=== PATIENT | female | born 1985 | race Caucasian/White ===

== ENCOUNTER 2017-09-28 19:31 | Emergency (ER) | payer OTHER ==
[2017-09-28 23:11] LABS: ADD MAN DIFF? NO
[2017-09-28 23:15] LABS: WHITE BLOOD COUNT 8.4 10^3/ul (4.8-10.8)
[2017-09-28 23:15] LABS: BASOPHIL # 0.1 10^3/ul (0.0-0.1); BASOPHILS % 0.6 % (0.0-2.0); EOSINOPHILS # 0.2 10^3/ul (0.0-0.5); EOSINOPHILS % 2.2 % (0.0-7.0); HEMATOCRIT 37.9 % (37.0-47.0); HEMOGLOBIN 13.8 g/dl (12.0-16.0); LYMPHOCYTES # 2.5 10^3/ul (0.8-2.9); LYMPHOCYTES % 29.5 % (15.0-51.0); MEAN CORPUSCULAR HEMOGLOBIN 31.4 pg (29.0-33.0); MEAN CORPUSCULAR HGB CONC 36.4 g/dl (32.0-37.0); MEAN CORPUSCULAR VOLUME 86.1 fl (82.0-101.0); MEAN PLATELET VOLUME 9.5 fl (7.4-10.4); MONOCYTE # 0.8 10^3/ul (0.3-0.9); NEUTROPHIL # 4.9 10^3/ul (1.6-7.5); NEUTROPHILS % 58.5 % (39.0-77.0); PLATELET COUNT 270 10^3/UL (140-415); RED CELL DISTRIBUTION WIDTH 12.3 % (11.5-14.5)
[2017-09-28 23:23] LABS: ADD UMIC YES; UR ASCORBIC ACID NEGATIVE (NEGATIVE); UR BILIRUBIN (Dip) NEGATIVE (NEGATIVE); UR BLOOD (Dip) NEGATIVE (NEGATIVE); UR CLARITY CLEAR (CLEAR); UR COLOR YELLOW (YELLOW); UR GLUCOSE (Dip) NEGATIVE (NEGATIVE); UR KETONES (Dip) NEGATIVE (NEGATIVE); UR LEUKOCYTE ESTERASE (Dip) TRACE Leu/ul (NEGATIVE); UR NITRITE (Dip) NEGATIVE (NEGATIVE); UR RBC 0 /HPF (0-5); UR SPECIFIC GRAVITY (Dip) 1.005 (1.003-1.030); UR TOTAL PROTEIN (Dip) NEGATIVE (NEGATIVE); UR UROBILINOGEN (Dip) NEGATIVE (NEGATIVE); UR WBC 4 /HPF (0-5)
[2017-09-28 23:40] LABS: ALANINE AMINOTRANSFERASE 86 IU/L (13-69); ALBUMIN/GLOBULIN RATIO 1.28; ALKALINE PHOSPHATASE 82 IU/L (42-121); ANION GAP 20 (8-16); ASPARTATE AMINO TRANSFERASE 52 IU/L (15-46); BILIRUBIN,INDIRECT 0.3 mg/dl (0-1.1); BILIRUBIN,TOTAL 0.3 mg/dl (0.2-1.3); BLOOD UREA NITROGEN 9 mg/dl (7-20); CALCIUM 10.1 mg/dl (8.4-10.2); CARBON DIOXIDE 20 mmol/L (21-31); CHLORIDE 103 mmol/L (97-110); CREATININE 1.07 mg/dl (0.44-1.00); GLUCOSE 103 mg/dl (70-220); LIPASE 85 U/L (23-300); POTASSIUM 3.7 mmol/L (3.5-5.1); SODIUM 139 mmol/L (135-144); TOTAL PROTEIN 8.9 g/dl (6.1-8.1)
== END 2017-09-29 01:22 | disposition home or self-care (01) ==
LOC: FTE 09-29 01:22
DX: R10.2 Pelvic and perineal pain (principal)
CPT/HCPCS: 76830; 76856; 80053; 81001; 83690; 85025; 87210; 99284-25

== ENCOUNTER 2017-10-01 17:09 | Emergency (ER) | payer OTHER ==
[2017-10-01] MEDS: HYDROCODONE/APAP (5/325) TAB PO (19:19)
[2017-10-01] MEDS: IOHEXOL 300MG/ML 150 ML BTL (19:30)
[2017-10-01] MEDS: SOD CHLORIDE 0.9% 100 ML (19:30)
[2017-10-01] MEDS: KETOROLAC 30 MG INJ IV (19:33)
[2017-10-01 19:36] LABS: ADD MAN DIFF? NO
[2017-10-01 19:41] LABS: BASOPHIL # 0.1 10^3/ul (0.0-0.1); BASOPHILS % 0.8 % (0.0-2.0); EOSINOPHILS # 0.2 10^3/ul (0.0-0.5); HEMATOCRIT 38.9 % (37.0-47.0); HEMOGLOBIN 14.2 g/dl (12.0-16.0); LYMPHOCYTES # 2.8 10^3/ul (0.8-2.9); LYMPHOCYTES % 30.7 % (15.0-51.0); MEAN CORPUSCULAR HEMOGLOBIN 31.6 pg (29.0-33.0); MEAN CORPUSCULAR HGB CONC 36.5 g/dl (32.0-37.0); MEAN CORPUSCULAR VOLUME 86.6 fl (82.0-101.0); MEAN PLATELET VOLUME 9.3 fl (7.4-10.4); MONOCYTE # 0.6 10^3/ul (0.3-0.9); MONOCYTES % 6.4 % (0.0-11.0); NEUTROPHIL # 5.5 10^3/ul (1.6-7.5); NEUTROPHILS % 59.9 % (39.0-77.0); PLATELET COUNT 296 10^3/UL (140-415); RED BLOOD COUNT 4.49 10^6/ul (4.20-5.40); RED CELL DISTRIBUTION WIDTH 11.9 % (11.5-14.5)
[2017-10-01 19:41] LABS: WHITE BLOOD COUNT 9.1 10^3/ul (4.8-10.8)
[2017-10-01 19:47] LABS: ADD UMIC NO; UR ASCORBIC ACID NEGATIVE (NEGATIVE); UR BILIRUBIN (Dip) NEGATIVE (NEGATIVE); UR BLOOD (Dip) NEGATIVE (NEGATIVE); UR CLARITY CLEAR (CLEAR); UR COLOR YELLOW (YELLOW); UR GLUCOSE (Dip) NEGATIVE (NEGATIVE); UR KETONES (Dip) NEGATIVE (NEGATIVE); UR LEUKOCYTE ESTERASE (Dip) NEGATIVE Leu/ul (NEGATIVE); UR NITRITE (Dip) NEGATIVE (NEGATIVE); UR SPECIFIC GRAVITY (Dip) 1.013 (1.003-1.030); UR TOTAL PROTEIN (Dip) NEGATIVE (NEGATIVE); UR UROBILINOGEN (Dip) NEGATIVE (NEGATIVE)
[2017-10-01 20:03] LABS: ALANINE AMINOTRANSFERASE 95 IU/L (13-69); ALBUMIN/GLOBULIN RATIO 1.42; ALKALINE PHOSPHATASE 81 IU/L (42-121); ASPARTATE AMINO TRANSFERASE 49 IU/L (15-46); BILIRUBIN,INDIRECT 0.3 mg/dl (0-1.1); BILIRUBIN,TOTAL 0.3 mg/dl (0.2-1.3); BLOOD UREA NITROGEN 9 mg/dl (7-20); CALCIUM 9.9 mg/dl (8.4-10.2); CARBON DIOXIDE 26 mmol/L (21-31); CHLORIDE 102 mmol/L (97-110); CREATININE 0.79 mg/dl (0.44-1.00); GLUCOSE 97 mg/dl (70-220); SODIUM 141 mmol/L (135-144); TOTAL PROTEIN 8.5 g/dl (6.1-8.1)
[2017-10-01 20:05] LABS: ANION GAP 17 (8-16); POTASSIUM 3.6 mmol/L (3.5-5.1)
== END 2017-10-01 21:06 | disposition home or self-care (01) ==
LOC: FTE 17:09
DX: R10.2 Pelvic and perineal pain (principal)
CPT/HCPCS: 74177; 80053; 81003; 85025; 96374; 99285-25

== ENCOUNTER 2018-09-18 09:55 | Emergency (ER) | payer OTHER ==
[2018-09-18 11:02] LABS: ADD MAN DIFF? NO
[2018-09-18 11:05] LABS: WHITE BLOOD COUNT 11.5 10^3/ul (4.8-10.8)
[2018-09-18 11:05] LABS: BASOPHIL # 0.1 10^3/ul (0.0-0.1); BASOPHILS % 0.4 % (0.0-2.0); EOSINOPHILS # 0.2 10^3/ul (0.0-0.5); EOSINOPHILS % 1.4 % (0.0-7.0); HEMATOCRIT 40.6 % (37.0-47.0); HEMOGLOBIN 14.3 g/dl (12.0-16.0); LYMPHOCYTES # 2.4 10^3/ul (0.8-2.9); LYMPHOCYTES % 20.5 % (15.0-51.0); MEAN CORPUSCULAR HEMOGLOBIN 31.3 pg (29.0-33.0); MEAN CORPUSCULAR HGB CONC 35.2 g/dl (32.0-37.0); MEAN CORPUSCULAR VOLUME 88.8 fl (82.0-101.0); MEAN PLATELET VOLUME 9.7 fl (7.4-10.4); MONOCYTE # 0.5 10^3/ul (0.3-0.9); MONOCYTES % 3.9 % (0.0-11.0); NEUTROPHIL # 8.4 10^3/ul (1.6-7.5); NEUTROPHILS % 73.1 % (39.0-77.0); PLATELET COUNT 333 10^3/UL (140-415); RED BLOOD COUNT 4.57 10^6/ul (4.20-5.40); RED CELL DISTRIBUTION WIDTH 12.9 % (11.5-14.5)
[2018-09-18 11:08] LABS: ADD UMIC NO; UR ASCORBIC ACID NEGATIVE (NEGATIVE); UR BILIRUBIN (Dip) NEGATIVE (NEGATIVE); UR BLOOD (Dip) NEGATIVE (NEGATIVE); UR CLARITY CLEAR (CLEAR); UR COLOR YELLOW (YELLOW); UR GLUCOSE (Dip) NEGATIVE (NEGATIVE); UR KETONES (Dip) NEGATIVE (NEGATIVE); UR LEUKOCYTE ESTERASE (Dip) NEGATIVE Leu/ul (NEGATIVE); UR NITRITE (Dip) NEGATIVE (NEGATIVE); UR SPECIFIC GRAVITY (Dip) 1.017 (1.003-1.030); UR TOTAL PROTEIN (Dip) NEGATIVE (NEGATIVE); UR UROBILINOGEN (Dip) NEGATIVE (NEGATIVE)
== END 2018-09-18 12:38 | disposition home or self-care (01) ==
LOC: FTE 09:55
DX: O26.891 Other specified pregnancy related conditions, first trimester (principal); R10.2 Pelvic and perineal pain; Z3A.08 8 weeks gestation of pregnancy
CPT/HCPCS: 36415; 76801; 81003; 84702; 85025; 86900; 86901; 99284-25

== ENCOUNTER 2018-10-21 10:00 | Emergency (ER) | payer OTHER ==
[2018-10-21 12:15] LABS: ADD MAN DIFF? NO
[2018-10-21 12:18] LABS: WHITE BLOOD COUNT 10.9 10^3/ul (4.8-10.8)
[2018-10-21 12:18] LABS: BASOPHILS % 0.4 % (0.0-2.0); EOSINOPHILS # 0.1 10^3/ul (0.0-0.5); EOSINOPHILS % 0.7 % (0.0-7.0); HEMATOCRIT 39.4 % (37.0-47.0); HEMOGLOBIN 13.9 g/dl (12.0-16.0); LYMPHOCYTES # 1.5 10^3/ul (0.8-2.9); LYMPHOCYTES % 13.4 % (15.0-51.0); MEAN CORPUSCULAR HEMOGLOBIN 31.7 pg (29.0-33.0); MEAN CORPUSCULAR HGB CONC 35.3 g/dl (32.0-37.0); MEAN CORPUSCULAR VOLUME 89.7 fl (82.0-101.0); MEAN PLATELET VOLUME 9.7 fl (7.4-10.4); MONOCYTE # 0.5 10^3/ul (0.3-0.9); MONOCYTES % 4.4 % (0.0-11.0); NEUTROPHIL # 8.8 10^3/ul (1.6-7.5); NEUTROPHILS % 80.5 % (39.0-77.0); PLATELET COUNT 299 10^3/UL (140-415); RED BLOOD COUNT 4.39 10^6/ul (4.20-5.40); RED CELL DISTRIBUTION WIDTH 12.5 % (11.5-14.5)
[2018-10-21 12:21] LABS: ADD UMIC YES; UR ASCORBIC ACID NEGATIVE (NEGATIVE); UR BACTERIA FEW /HPF (NONE SEEN); UR BILIRUBIN (Dip) NEGATIVE (NEGATIVE); UR BLOOD (Dip) NEGATIVE (NEGATIVE); UR CLARITY SLIGHTLY CLOUDY (CLEAR); UR COLOR YELLOW (YELLOW); UR GLUCOSE (Dip) NEGATIVE (NEGATIVE); UR KETONES (Dip) NEGATIVE (NEGATIVE); UR LEUKOCYTE ESTERASE (Dip) TRACE Leu/ul (NEGATIVE); UR MUCUS MODERATE /HPF (NONE SEEN); UR NITRITE (Dip) NEGATIVE (NEGATIVE); UR RBC 2 /HPF (0-5); UR SPECIFIC GRAVITY (Dip) 1.012 (1.003-1.030); UR SQUAMOUS EPITHELIAL CELL FEW /HPF (FEW); UR TOTAL PROTEIN (Dip) NEGATIVE (NEGATIVE); UR UROBILINOGEN (Dip) NEGATIVE (NEGATIVE); UR WBC 3 /HPF (0-5)
== END 2018-10-21 13:59 | disposition home or self-care (01) ==
LOC: FTE 10:00
DX: O20.9 Hemorrhage in early pregnancy, unspecified (principal); R10.2 Pelvic and perineal pain; Z3A.13 13 weeks gestation of pregnancy
CPT/HCPCS: 36415; 76801; 81001; 84702; 85025; 86900; 86901; 99284-25

== ENCOUNTER 2018-10-24 08:58 | Emergency (ER) | payer OTHER ==
[2018-10-24 10:12] LABS: ADD MAN DIFF? NO
[2018-10-24 10:17] LABS: WHITE BLOOD COUNT 10.4 10^3/ul (4.8-10.8)
[2018-10-24 10:17] LABS: BASOPHILS % 0.4 % (0.0-2.0); EOSINOPHILS # 0.1 10^3/ul (0.0-0.5); EOSINOPHILS % 1.3 % (0.0-7.0); HEMATOCRIT 36.3 % (37.0-47.0); HEMOGLOBIN 12.8 g/dl (12.0-16.0); LYMPHOCYTES # 1.7 10^3/ul (0.8-2.9); LYMPHOCYTES % 16.5 % (15.0-51.0); MEAN CORPUSCULAR HEMOGLOBIN 31.4 pg (29.0-33.0); MEAN CORPUSCULAR HGB CONC 35.3 g/dl (32.0-37.0); MEAN PLATELET VOLUME 9.8 fl (7.4-10.4); MONOCYTE # 0.6 10^3/ul (0.3-0.9); MONOCYTES % 5.7 % (0.0-11.0); NEUTROPHIL # 7.8 10^3/ul (1.6-7.5); NEUTROPHILS % 75.3 % (39.0-77.0); PLATELET COUNT 275 10^3/UL (140-415); RED BLOOD COUNT 4.08 10^6/ul (4.20-5.40); RED CELL DISTRIBUTION WIDTH 12.3 % (11.5-14.5)
== END 2018-10-24 12:12 | disposition home or self-care (01) ==
LOC: FTE 08:58
DX: O20.9 Hemorrhage in early pregnancy, unspecified (principal); Z3A.13 13 weeks gestation of pregnancy
CPT/HCPCS: 36415; 84702; 85025; 99283

== ENCOUNTER 2018-10-31 20:12 | Emergency (ER) | payer OTHER ==
[2018-10-31 21:25] LABS: ADD MAN DIFF? NO
[2018-10-31 21:27] LABS: WHITE BLOOD COUNT 11.2 10^3/ul (4.8-10.8)
[2018-10-31 21:27] LABS: BASOPHIL # 0.1 10^3/ul (0.0-0.1); BASOPHILS % 0.4 % (0.0-2.0); EOSINOPHILS # 0.2 10^3/ul (0.0-0.5); EOSINOPHILS % 1.3 % (0.0-7.0); HEMATOCRIT 34.3 % (37.0-47.0); LYMPHOCYTES # 2.3 10^3/ul (0.8-2.9); LYMPHOCYTES % 20.9 % (15.0-51.0); MEAN CORPUSCULAR HEMOGLOBIN 31.5 pg (29.0-33.0); MEAN PLATELET VOLUME 10.1 fl (7.4-10.4); MONOCYTE # 0.7 10^3/ul (0.3-0.9); MONOCYTES % 5.9 % (0.0-11.0); NEUTROPHIL # 7.9 10^3/ul (1.6-7.5); NEUTROPHILS % 70.8 % (39.0-77.0); PLATELET COUNT 251 10^3/UL (140-415); RED BLOOD COUNT 3.81 10^6/ul (4.20-5.40); RED CELL DISTRIBUTION WIDTH 12.4 % (11.5-14.5)
[2018-10-31 21:31] LABS: ADD UMIC NO; UR ASCORBIC ACID NEGATIVE (NEGATIVE); UR BILIRUBIN (Dip) NEGATIVE (NEGATIVE); UR BLOOD (Dip) NEGATIVE (NEGATIVE); UR CLARITY CLEAR (CLEAR); UR COLOR STRAW (YELLOW); UR GLUCOSE (Dip) NEGATIVE (NEGATIVE); UR KETONES (Dip) NEGATIVE (NEGATIVE); UR LEUKOCYTE ESTERASE (Dip) NEGATIVE Leu/ul (NEGATIVE); UR NITRITE (Dip) NEGATIVE (NEGATIVE); UR TOTAL PROTEIN (Dip) NEGATIVE (NEGATIVE); UR UROBILINOGEN (Dip) NEGATIVE (NEGATIVE)
[2018-10-31 21:48] LABS: ALANINE AMINOTRANSFERASE 24 IU/L (13-69); ALBUMIN/GLOBULIN RATIO 1.21; ALKALINE PHOSPHATASE 70 IU/L (42-121); ANION GAP 12 (5-13); ASPARTATE AMINO TRANSFERASE 22 IU/L (15-46); BILIRUBIN,INDIRECT 0.1 mg/dl (0-1.1); BILIRUBIN,TOTAL 0.1 mg/dl (0.2-1.3); BLOOD UREA NITROGEN 7 mg/dl (7-20); CALCIUM 9.7 mg/dl (8.4-10.2); CARBON DIOXIDE 20 mmol/L (21-31); CHLORIDE 104 mmol/L (97-110); CREATININE 0.48 mg/dl (0.44-1.00); Estimated GFR > 60 mL/min (>60); GLUCOSE 118 mg/dl (70-220); POTASSIUM 3.7 mmol/L (3.5-5.1); SODIUM 136 mmol/L (135-144); TOTAL PROTEIN 7.3 g/dl (6.1-8.1)
== END 2018-10-31 23:19 | disposition home or self-care (01) ==
LOC: E/R 20:12
DX: O20.0 Threatened abortion (principal); Z3A.15 15 weeks gestation of pregnancy
CPT/HCPCS: 36415; 76805; 80053; 81003; 84702; 85025; 86900; 86901; 99284-25

== ENCOUNTER 2018-11-21 20:05 | Emergency (ER) | payer OTHER ==
[2018-11-21] MEDS ORDERED: SOD CHLORIDE 0.9% 1,000 ML IV (21:47)
[2018-11-21] MEDS: SOD CHLORIDE 0.9% 1,000 ML IV (22:07)
[2018-11-21] MEDS: DIPHENHYDRAMINE 50 MG INJ IV (22:07)
[2018-11-21] MEDS: METOCLOPRAMIDE 10 MG INJ IV (22:07)
[2018-11-21] MEDS: morphine 4 MG/ML VIAL IV (22:07)
[2018-11-21] MEDS: ACETAMINOPHEN 325 MG TAB PO (22:08)
[2018-11-21 22:34] LABS: URINE BLOOD (Dip) POC Trace-intact (NEGATIVE); URINE GLUCOSE (Dip) POC Negative (NEGATIVE); URINE KETONES (Dip) POC Negative (NEGATIVE); URINE LEUKOCYTE EST (Dip) POC Negative (NEGATIVE); URINE NITRITE (Dip) POC Negative (NEGATIVE); URINE TOTAL PROTEIN POC Negative (NEGATIVE)
== END 2018-11-21 23:57 | disposition home or self-care (01) ==
LOC: FTE 23:57
DX: O99.352 Diseases of the nervous system complicating pregnancy, second trimester (principal); G43.909 Migraine, unspecified, not intractable, without status migrainosus; Z3A.18 18 weeks gestation of pregnancy
CPT/HCPCS: 81003; 96361; 96374; 96375; 99284-25

== ENCOUNTER 2018-12-11 20:57 | Emergency (ER) | payer OTHER | END 2018-12-12 00:08 | disposition home or self-care (01) | LOC: FTE 12-12 00:08 | DX: O23.592 Infection of other part of genital tract in pregnancy, second trimester (principal); Z3A.21 21 weeks gestation of pregnancy; Z86.19 Personal history of other infectious and parasitic diseases | CPT/HCPCS: 99283; Z7502 ==

== ENCOUNTER 2018-12-20 19:07 | Outpatient (CLI) | payer OTHER ==
[2018-12-20 20:45] LABS: ADD UMIC YES; UR AMORPHOUS CRYSTAL FEW /HPF (NONE SEEN); UR ASCORBIC ACID NEGATIVE (NEGATIVE); UR BACTERIA FEW /HPF (NONE SEEN); UR BILIRUBIN (Dip) NEGATIVE (NEGATIVE); UR BLOOD (Dip) 1+ mg/dL (NEGATIVE); UR CLARITY SLIGHTLY CLOUDY (CLEAR); UR COLOR STRAW (YELLOW); UR GLUCOSE (Dip) NEGATIVE (NEGATIVE); UR KETONES (Dip) 1+ mg/dL (NEGATIVE); UR LEUKOCYTE ESTERASE (Dip) 2+ Leu/ul (NEGATIVE); UR NITRITE (Dip) NEGATIVE (NEGATIVE); UR RBC 1 /HPF (0-5); UR SPECIFIC GRAVITY (Dip) 1.006 (1.003-1.030); UR SQUAMOUS EPITHELIAL CELL FEW /HPF (FEW); UR TOTAL PROTEIN (Dip) NEGATIVE (NEGATIVE); UR UROBILINOGEN (Dip) NEGATIVE (NEGATIVE); UR WBC 10 /HPF (0-5)
[2018-12-20] MEDS: LACTATED RINGER'S 1,000 ML IV ×2 (21:50→23:54)
[2018-12-20] MEDS: CEFTRIAXONE 1 GM/50 ML (PMX) 50 ML IVPB (23:19)
== END 2018-12-21 01:50 | disposition home or self-care (01) ==
LOC: OBT 19:07 → L-D 19:08
DX: O23.42 Unspecified infection of urinary tract in pregnancy, second trimester (principal); Z3A.21 21 weeks gestation of pregnancy
CPT/HCPCS: 76817; 81001; 87086; 96360; 96361

== ENCOUNTER 2019-01-12 14:26 | Outpatient (CLI) | payer OTHER ==
[2019-01-12 15:28] LABS: ADD UMIC YES; UR ASCORBIC ACID 40 mg/dL (NEGATIVE); UR BACTERIA FEW /HPF (NONE SEEN); UR BILIRUBIN (Dip) NEGATIVE (NEGATIVE); UR BLOOD (Dip) NEGATIVE (NEGATIVE); UR CLARITY CLOUDY (CLEAR); UR COLOR YELLOW (YELLOW); UR GLUCOSE (Dip) NEGATIVE (NEGATIVE); UR KETONES (Dip) TRACE mg/dL (NEGATIVE); UR LEUKOCYTE ESTERASE (Dip) 3+ Leu/ul (NEGATIVE); UR MUCUS MODERATE /HPF (NONE SEEN); UR NITRITE (Dip) NEGATIVE (NEGATIVE); UR RBC 4 /HPF (0-5); UR SPECIFIC GRAVITY (Dip) 1.023 (1.003-1.030); UR SQUAMOUS EPITHELIAL CELL MODERATE /HPF (FEW); UR TOTAL PROTEIN (Dip) 1+ mg/dl (NEGATIVE); UR UROBILINOGEN (Dip) NEGATIVE (NEGATIVE); UR WBC 36 /HPF (0-5)
[2019-01-12 15:58] LABS: ADD MAN DIFF? NO
[2019-01-12 16:01] LABS: BASOPHILS % 0.4 % (0.0-2.0); EOSINOPHILS # 0.1 10^3/ul (0.0-0.5); EOSINOPHILS % 1.3 % (0.0-7.0); HEMATOCRIT 33.7 % (37.0-47.0); HEMOGLOBIN 11.6 g/dl (12.0-16.0); LYMPHOCYTES # 1.5 10^3/ul (0.8-2.9); LYMPHOCYTES % 14.6 % (15.0-51.0); MEAN CORPUSCULAR HEMOGLOBIN 31.4 pg (29.0-33.0); MEAN CORPUSCULAR HGB CONC 34.4 g/dl (32.0-37.0); MEAN CORPUSCULAR VOLUME 91.3 fl (82.0-101.0); MONOCYTE # 0.6 10^3/ul (0.3-0.9); MONOCYTES % 5.5 % (0.0-11.0); NEUTROPHIL # 7.9 10^3/ul (1.6-7.5); NEUTROPHILS % 77.5 % (39.0-77.0); PLATELET COUNT 257 10^3/UL (140-415); RED BLOOD COUNT 3.69 10^6/ul (4.20-5.40); RED CELL DISTRIBUTION WIDTH 13.6 % (11.5-14.5)
[2019-01-12 16:01] LABS: WHITE BLOOD COUNT 10.2 10^3/ul (4.8-10.8)
[2019-01-12] MEDS: CEFTRIAXONE 1 GM/50 ML (PMX) 50 ML IVPB (17:01)
[2019-01-12] MEDS: SOD CHLORIDE 0.9% 1,000 ML IV (17:25)
== END 2019-01-12 18:30 | disposition home or self-care (01) ==
LOC: OBT 14:26 → L-D 14:27 → OBT 18:30
DX: O26.892 Other specified pregnancy related conditions, second trimester (principal); R10.30 Lower abdominal pain, unspecified; Z3A.24 24 weeks gestation of pregnancy; Z87.440 Personal history of urinary (tract) infections
CPT/HCPCS: 36415; 76815; 76817; 81001; 82731; 85025; 87086; 96360

== ENCOUNTER 2019-02-04 16:08 | Inpatient (IN) | payer OTHER ==
[2019-02-04] MEDS ORDERED: MAGNESIUM SULFATE 4 GM/100 ML 100 ML (17:47)
[2019-02-04] MEDS ORDERED: ACETAMINOPHEN 325 MG TAB PO (18:00)
[2019-02-04] MEDS: LACTATED RINGER'S 1,000 ML IV (18:06)
[2019-02-04] MEDS: MAGNESIUM SULFATE 4 GM/100 ML 100 ML IV (18:08)
[2019-02-04 18:34] LABS: ADD MAN DIFF? NO
[2019-02-04] MEDS: MAGNESIUM SULFATE 20 GM/500 ML 500 ML IV (18:36)
[2019-02-04 18:38] LABS: BASOPHILS % 0.4 % (0.0-2.0); EOSINOPHILS # 0.1 10^3/ul (0.0-0.5); EOSINOPHILS % 1.2 % (0.0-7.0); HEMATOCRIT 36.8 % (37.0-47.0); HEMOGLOBIN 12.6 g/dl (12.0-16.0); LYMPHOCYTES # 1.6 10^3/ul (0.8-2.9); MEAN CORPUSCULAR HEMOGLOBIN 31.1 pg (29.0-33.0); MEAN CORPUSCULAR HGB CONC 34.2 g/dl (32.0-37.0); MEAN CORPUSCULAR VOLUME 90.9 fl (82.0-101.0); MEAN PLATELET VOLUME 10.4 fl (7.4-10.4); MONOCYTE # 0.7 10^3/ul (0.3-0.9); MONOCYTES % 6.8 % (0.0-11.0); NEUTROPHIL # 7.3 10^3/ul (1.6-7.5); PLATELET COUNT 290 10^3/UL (140-415); RED BLOOD COUNT 4.05 10^6/ul (4.20-5.40); RED CELL DISTRIBUTION WIDTH 13.2 % (11.5-14.5)
[2019-02-04 18:38] LABS: WHITE BLOOD COUNT 9.7 10^3/ul (4.8-10.8)
[2019-02-04 19:15] LABS: ADD UMIC NO; UR ASCORBIC ACID 20 mg/dL (NEGATIVE); UR BACTERIA FEW /HPF (NONE SEEN); UR BILIRUBIN (Dip) NEGATIVE (NEGATIVE); UR BLOOD (Dip) NEGATIVE (NEGATIVE); UR CALCIUM OXALATE CRYSTAL FEW /HPF (NONE SEEN); UR CLARITY SLIGHTLY CLOUDY (CLEAR); UR COLOR YELLOW (YELLOW); UR GLUCOSE (Dip) NEGATIVE (NEGATIVE); UR KETONES (Dip) NEGATIVE (NEGATIVE); UR LEUKOCYTE ESTERASE (Dip) NEGATIVE Leu/ul (NEGATIVE); UR MUCUS MODERATE /HPF (NONE SEEN); UR NITRITE (Dip) NEGATIVE (NEGATIVE); UR RBC 3 /HPF (0-5); UR SQUAMOUS EPITHELIAL CELL FEW /HPF (FEW); UR TOTAL PROTEIN (Dip) NEGATIVE (NEGATIVE); UR UROBILINOGEN (Dip) NEGATIVE (NEGATIVE); UR WBC 21 /HPF (0-5)
[2019-02-04 19:47] LABS: ALANINE AMINOTRANSFERASE 24 IU/L (13-69); ALBUMIN 4.1 g/dl (3.3-4.9); ALBUMIN/GLOBULIN RATIO 1.07; ALKALINE PHOSPHATASE 139 IU/L (42-121); ANION GAP 9 (5-13); ASPARTATE AMINO TRANSFERASE 37 IU/L (15-46); BILIRUBIN,INDIRECT 0.2 mg/dl (0-1.1); BILIRUBIN,TOTAL 0.2 mg/dl (0.2-1.3); BLOOD UREA NITROGEN 6 mg/dl (7-20); CALCIUM 9.4 mg/dl (8.4-10.2); CARBON DIOXIDE 26 mmol/L (21-31); CHLORIDE 102 mmol/L (97-110); CREATININE 0.39 mg/dl (0.44-1.00); Estimated GFR > 60 mL/min (>60); GLUCOSE 86 mg/dl (70-220); SODIUM 137 mmol/L (135-144); TOTAL PROTEIN 7.9 g/dl (6.1-8.1)
[2019-02-04] MEDS: CLINDAMYCIN 900 MG/D5W (PMX) 50 ML IVPB (20:41)
[2019-02-04] MEDS: BETAMET NA PHOS/AC(6 MG/ML) 2 ML INJ SYG IM (20:48)
[2019-02-04 22:38] LABS: HEPATITIS B SURFACE ANTIGEN NEGATIVE (NEGATIVE)
[2019-02-05] MEDS: LACTATED RINGER'S 1,000 ML IV ×2 (02:09→17:44)
[2019-02-05] MEDS: MAGNESIUM SULFATE 20 GM/500 ML 500 ML IV ×2 (04:17→14:00)
[2019-02-05] MEDS: CLINDAMYCIN 900 MG/D5W (PMX) 50 ML IVPB ×3 (05:31→21:13)
[2019-02-05 07:14] LABS: MAGNESIUM 5.3 mg/dl (1.7-2.5)
[2019-02-05] MEDS ORDERED: FERROUS SULFATE (EC) 325 MG TAB PO (09:00)
[2019-02-05] MEDS ORDERED: PRENATAL VITAMIN PO (09:00)
[2019-02-05 12:06] LABS: MAGNESIUM 5.3 mg/dl (1.7-2.5)
[2019-02-05 18:40] LABS: MAGNESIUM 5.1 mg/dl (1.7-2.5)
[2019-02-05] MEDS: BETAMET NA PHOS/AC(6 MG/ML) 2 ML INJ SYG IM (20:59)
[2019-02-05] MEDS: PRENATAL VITAMIN PO (21:14)
[2019-02-05] MEDS: DOCUSATE SODIUM 100 MG CAP PO (21:14)
[2019-02-05] MEDS: FERROUS SULFATE (EC) 325 MG TAB PO (21:14)
[2019-02-06] MEDS: MAGNESIUM SULFATE 20 GM/500 ML 500 ML IV ×2 (00:48→10:18)
[2019-02-06] MEDS: CLINDAMYCIN 900 MG/D5W (PMX) 50 ML IVPB ×4 (05:12→21:02)
[2019-02-06 06:56] LABS: MAGNESIUM 5.3 mg/dl (1.7-2.5)
[2019-02-06] MEDS: LACTATED RINGER'S 1,000 ML IV ×3 (08:15→23:06)
[2019-02-06 13:03] LABS: MAGNESIUM 5.4 mg/dl (1.7-2.5)
[2019-02-06] MEDS ORDERED: MAGNESIUM CITRATE 300 ML BTL PO (14:00)
[2019-02-06 19:12] LABS: MAGNESIUM 5.5 mg/dl (1.7-2.5)
[2019-02-06] MEDS: FERROUS SULFATE (EC) 325 MG TAB PO (21:02)
[2019-02-06] MEDS: DOCUSATE SODIUM 100 MG CAP PO (21:02)
[2019-02-06] MEDS: PRENATAL VITAMIN PO (21:02)
[2019-02-07] MEDS: CLINDAMYCIN 900 MG/D5W (PMX) 50 ML IVPB (05:49)
== END 2019-02-07 14:19 | disposition home or self-care (01) | DRG 833 ==
LOC: OBT 16:08 → L-D 16:08 → OBT 17:37 → L-D 17:37
DX: O47.02 False labor before 37 completed weeks of gestation, second trimester (principal); Z3A.28 28 weeks gestation of pregnancy
CPT/HCPCS: 76817; 76818; 80053; 81001; 81003; 83735; 85025; 86900; 86901; 87086; 87340

== ENCOUNTER 2019-03-22 10:48 | Outpatient (CLI) | payer OTHER ==
[2019-03-22 11:47] LABS: ADD MAN DIFF? NO
[2019-03-22 11:50] LABS: BASOPHILS % 0.2 % (0.0-2.0); EOSINOPHILS # 0.1 10^3/ul (0.0-0.5); EOSINOPHILS % 0.9 % (0.0-7.0); HEMATOCRIT 36.8 % (37.0-47.0); HEMOGLOBIN 12.5 g/dl (12.0-16.0); LYMPHOCYTES # 1.2 10^3/ul (0.8-2.9); LYMPHOCYTES % 13.9 % (15.0-51.0); MEAN CORPUSCULAR HEMOGLOBIN 30.7 pg (29.0-33.0); MEAN CORPUSCULAR VOLUME 90.4 fl (82.0-101.0); MEAN PLATELET VOLUME 11.2 fl (7.4-10.4); MONOCYTE # 0.5 10^3/ul (0.3-0.9); MONOCYTES % 5.4 % (0.0-11.0); NEUTROPHIL # 6.9 10^3/ul (1.6-7.5); PLATELET COUNT 229 10^3/UL (140-415); RED BLOOD COUNT 4.07 10^6/ul (4.20-5.40); RED CELL DISTRIBUTION WIDTH 13.4 % (11.5-14.5)
[2019-03-22 11:50] LABS: WHITE BLOOD COUNT 8.8 10^3/ul (4.8-10.8)
[2019-03-22 12:02] LABS: ADD UMIC YES; UR ASCORBIC ACID NEGATIVE (NEGATIVE); UR BACTERIA FEW /HPF (NONE SEEN); UR BILIRUBIN (Dip) NEGATIVE (NEGATIVE); UR BLOOD (Dip) 1+ mg/dL (NEGATIVE); UR CLARITY CLEAR (CLEAR); UR COLOR YELLOW (YELLOW); UR GLUCOSE (Dip) NEGATIVE (NEGATIVE); UR KETONES (Dip) NEGATIVE (NEGATIVE); UR LEUKOCYTE ESTERASE (Dip) NEGATIVE Leu/ul (NEGATIVE); UR NITRITE (Dip) NEGATIVE (NEGATIVE); UR RBC 1 /HPF (0-5); UR SPECIFIC GRAVITY (Dip) 1.013 (1.003-1.030); UR SQUAMOUS EPITHELIAL CELL FEW /HPF (FEW); UR TOTAL PROTEIN (Dip) NEGATIVE (NEGATIVE); UR UROBILINOGEN (Dip) NEGATIVE (NEGATIVE); UR WBC 2 /HPF (0-5)
[2019-03-22 12:08] LABS: ALANINE AMINOTRANSFERASE 30 IU/L (13-69); ALBUMIN 3.6 g/dl (3.3-4.9); ALKALINE PHOSPHATASE 216 IU/L (42-121); ANION GAP 9 (5-13); ASPARTATE AMINO TRANSFERASE 31 IU/L (15-46); BILIRUBIN,INDIRECT 0.3 mg/dl (0-1.1); BILIRUBIN,TOTAL 0.3 mg/dl (0.2-1.3); BLOOD UREA NITROGEN 7 mg/dl (7-20); CALCIUM 9.6 mg/dl (8.4-10.2); CARBON DIOXIDE 23 mmol/L (21-31); CHLORIDE 105 mmol/L (97-110); CREATININE 0.46 mg/dl (0.44-1.00); Estimated GFR > 60 mL/min (>60); GLUCOSE 85 mg/dl (70-220); SODIUM 137 mmol/L (135-144); TOTAL PROTEIN 7.6 g/dl (6.1-8.1); URIC ACID 6.4 mg/dl (3.1-7.9)
[2019-03-22 12:10] LABS: INR 0.88; PT RATIO 0.9
[2019-03-22 12:12] LABS: PARTIAL THROMBOPLASTIN TIME 26.2 Sec (23.0-35.0)
[2019-03-22 12:27] LABS: POTASSIUM 4.1 mmol/L (3.5-5.1)
[2019-03-22 13:10] LABS: CREATININE,URINE RANDOM 68.64 mg/dl (20-320); PROTEIN/CREAT RATIO 0.23 RATIO
[2019-03-25 10:17] LABS: COLLECTION PERIOD 24 hrs
[2019-03-25 12:36] LABS: 24HR URINE TOTAL PROTEIN 211.3 mg/24hrs (42.0-225.0); VOLUME 845 mls
[2019-03-25 13:14] LABS: CREATININE 0.45 mg/dl (0.44-1.00)
[2019-03-25 13:22] LABS: COLLECTION PERIOD 24 hrs; CREATININE,URINE RANDOM 132.84 mg/dl (20-320); VOLUME 845 ml/24hrs
[2019-03-25 13:23] LABS: CREATININE CLEARANCE 173.2 mls/min (84.0-162.0); SCRET 0.45 mg/dl (0.44-1.00)
== END 2019-03-22 13:30 | disposition home or self-care (01) ==
LOC: OBT 10:48 → L-D 10:49 → OBT 13:30
DX: O24.414 Gestational diabetes mellitus in pregnancy, insulin controlled (principal); Z3A.33 33 weeks gestation of pregnancy
CPT/HCPCS: 36415; 76815; 76818; 80053; 81001; 81003; 82570; 84560; 85025; 85384; 85610; 85730; 93005

== ENCOUNTER 2019-03-26 12:36 | Outpatient (CLI) | payer OTHER ==
[2019-03-26 15:12] LABS: ADD MAN DIFF? NO; BASOPHILS % 0.4 % (0.0-2.0); EOSINOPHILS # 0.2 10^3/ul (0.0-0.5); EOSINOPHILS % 1.8 % (0.0-7.0); HEMATOCRIT 36.8 % (37.0-47.0); HEMOGLOBIN 12.7 g/dl (12.0-16.0); LYMPHOCYTES # 1.4 10^3/ul (0.8-2.9); LYMPHOCYTES % 16.9 % (15.0-51.0); MEAN CORPUSCULAR HEMOGLOBIN 31.3 pg (29.0-33.0); MEAN CORPUSCULAR HGB CONC 34.5 g/dl (32.0-37.0); MEAN CORPUSCULAR VOLUME 90.6 fl (82.0-101.0); MEAN PLATELET VOLUME 11.3 fl (7.4-10.4); MONOCYTE # 0.5 10^3/ul (0.3-0.9); MONOCYTES % 6.4 % (0.0-11.0); NEUTROPHIL # 6.3 10^3/ul (1.6-7.5); NEUTROPHILS % 74.1 % (39.0-77.0); PLATELET COUNT 237 10^3/UL (140-415); RED BLOOD COUNT 4.06 10^6/ul (4.20-5.40); RED CELL DISTRIBUTION WIDTH 13.2 % (11.5-14.5)
[2019-03-26 15:12] LABS: WHITE BLOOD COUNT 8.4 10^3/ul (4.8-10.8)
[2019-03-26 15:31] LABS: PROTIME 12.3 Sec (11.9-14.9)
[2019-03-26 15:32] LABS: PARTIAL THROMBOPLASTIN TIME 26.4 Sec (23.0-35.0)
[2019-03-26] MEDS: LACTATED RINGER'S 1,000 ML IV ×2 (16:25→16:35)
[2019-03-27 15:50] LABS: RAPID PLASMA REAGIN NONREACTIVE (NR)
== END 2019-03-26 17:05 | disposition home or self-care (01) ==
LOC: OBT 12:36 → L-D 12:42 → OBT 17:05
DX: O24.419 Gestational diabetes mellitus in pregnancy, unspecified control (principal); O10.913 Unspecified pre-existing hypertension complicating pregnancy, third trimester; Z3A.34 34 weeks gestation of pregnancy
CPT/HCPCS: 85025; 85610; 85730; 86592; 86850; 86900; 86901; 96360

== ENCOUNTER 2019-03-27 10:18 | Outpatient (CLI) | payer OTHER ==
[2019-03-27 12:01] LABS: ADD UMIC NO; UR ASCORBIC ACID NEGATIVE (NEGATIVE); UR BACTERIA FEW /HPF (NONE SEEN); UR BILIRUBIN (Dip) NEGATIVE (NEGATIVE); UR BLOOD (Dip) NEGATIVE (NEGATIVE); UR CLARITY SLIGHTLY CLOUDY (CLEAR); UR COLOR YELLOW (YELLOW); UR GLUCOSE (Dip) NEGATIVE (NEGATIVE); UR KETONES (Dip) NEGATIVE (NEGATIVE); UR LEUKOCYTE ESTERASE (Dip) NEGATIVE Leu/ul (NEGATIVE); UR NITRITE (Dip) NEGATIVE (NEGATIVE); UR RBC 1 /HPF (0-5); UR SPECIFIC GRAVITY (Dip) 1.014 (1.003-1.030); UR SQUAMOUS EPITHELIAL CELL FEW /HPF (FEW); UR TOTAL PROTEIN (Dip) NEGATIVE (NEGATIVE); UR UROBILINOGEN (Dip) NEGATIVE (NEGATIVE); UR WBC 1 /HPF (0-5)
[2019-03-27 12:36] LABS: RUPTURE FETAL MEMBRANES NEGATIVE (NEGATIVE)
== END 2019-03-27 15:55 | disposition home or self-care (01) ==
LOC: OBT 10:18 → L-D 10:18 → OBT 15:55
DX: O47.03 False labor before 37 completed weeks of gestation, third trimester (principal); O24.414 Gestational diabetes mellitus in pregnancy, insulin controlled; Z3A.35 35 weeks gestation of pregnancy
CPT/HCPCS: 76818; 81001; 81003; 82962; 84112

== ENCOUNTER 2019-03-29 11:02 | Inpatient (IN) | payer OTHER ==
[2019-03-29 12:52] LABS: ADD UMIC YES; UR ASCORBIC ACID NEGATIVE (NEGATIVE); UR BACTERIA FEW /HPF (NONE SEEN); UR BILIRUBIN (Dip) NEGATIVE (NEGATIVE); UR BLOOD (Dip) 1+ mg/dL (NEGATIVE); UR CLARITY SLIGHTLY CLOUDY (CLEAR); UR COLOR YELLOW (YELLOW); UR GLUCOSE (Dip) NEGATIVE (NEGATIVE); UR KETONES (Dip) NEGATIVE (NEGATIVE); UR LEUKOCYTE ESTERASE (Dip) TRACE Leu/ul (NEGATIVE); UR MUCUS FEW /HPF (NONE SEEN); UR NITRITE (Dip) NEGATIVE (NEGATIVE); UR RBC 1 /HPF (0-5); UR SPECIFIC GRAVITY (Dip) 1.017 (1.003-1.030); UR SQUAMOUS EPITHELIAL CELL FEW /HPF (FEW); UR TOTAL PROTEIN (Dip) 1+ mg/dl (NEGATIVE); UR UROBILINOGEN (Dip) NEGATIVE (NEGATIVE); UR WBC 4 /HPF (0-5)
[2019-03-29] MEDS: LACTATED RINGER'S 1,000 ML IV ×3 (13:38→21:59)
[2019-03-29 14:08] LABS: ADD MAN DIFF? NO
[2019-03-29 14:10] LABS: WHITE BLOOD COUNT 7.2 10^3/ul (4.8-10.8)
[2019-03-29 14:10] LABS: BASOPHILS % 0.6 % (0.0-2.0); EOSINOPHILS # 0.1 10^3/ul (0.0-0.5); EOSINOPHILS % 1.8 % (0.0-7.0); HEMATOCRIT 34.5 % (37.0-47.0); HEMOGLOBIN 11.8 g/dl (12.0-16.0); LYMPHOCYTES # 1.3 10^3/ul (0.8-2.9); LYMPHOCYTES % 17.4 % (15.0-51.0); MEAN CORPUSCULAR HEMOGLOBIN 31.1 pg (29.0-33.0); MEAN CORPUSCULAR HGB CONC 34.2 g/dl (32.0-37.0); MEAN CORPUSCULAR VOLUME 90.8 fl (82.0-101.0); MEAN PLATELET VOLUME 11.5 fl (7.4-10.4); MONOCYTE # 0.6 10^3/ul (0.3-0.9); MONOCYTES % 7.8 % (0.0-11.0); NEUTROPHIL # 5.2 10^3/ul (1.6-7.5); NEUTROPHILS % 71.8 % (39.0-77.0); PLATELET COUNT 221 10^3/UL (140-415); RED CELL DISTRIBUTION WIDTH 13.2 % (11.5-14.5)
[2019-03-29 14:29] LABS: INR 0.88; PT RATIO 0.9
[2019-03-29 14:30] LABS: PARTIAL THROMBOPLASTIN TIME 25.8 Sec (23.0-35.0)
[2019-03-29] MEDS ORDERED: CALCIUM CARBONATE 750 MG CHEW TAB PO (14:30)
[2019-03-29] MEDS ORDERED: DIPHENHYDRAMINE 25 MG CAP PO (14:30)
[2019-03-29 14:47] LABS: ALANINE AMINOTRANSFERASE 25 IU/L (13-69); ALBUMIN 3.3 g/dl (3.3-4.9); ALBUMIN/GLOBULIN RATIO 0.94; ALKALINE PHOSPHATASE 216 IU/L (42-121); ANION GAP 6 (5-13); ASPARTATE AMINO TRANSFERASE 28 IU/L (15-46); BILIRUBIN,INDIRECT 0.3 mg/dl (0-1.1); BILIRUBIN,TOTAL 0.3 mg/dl (0.2-1.3); BLOOD UREA NITROGEN 9 mg/dl (7-20); CALCIUM 9.7 mg/dl (8.4-10.2); CARBON DIOXIDE 24 mmol/L (21-31); CHLORIDE 106 mmol/L (97-110); CREATININE 0.44 mg/dl (0.44-1.00); Estimated GFR > 60 mL/min (>60); GLUCOSE 114 mg/dl (70-220); POTASSIUM 3.8 mmol/L (3.5-5.1); SODIUM 136 mmol/L (135-144); TOTAL PROTEIN 6.8 g/dl (6.1-8.1); URIC ACID 6.1 mg/dl (3.1-7.9)
[2019-03-29] MEDS: INSULIN ASPART [NOVOLOG] 3 ML PEN SC (18:30)
[2019-03-29] MEDS: ACETAMINOPHEN 325 MG TAB PO (20:05)
[2019-03-29 20:31] LABS: RAPID PLASMA REAGIN NONREACTIVE (NR)
[2019-03-29] MEDS: NPH, HUMAN INSULIN ISOPHANE 3ML VIAL SC (21:09)
[2019-03-30] MEDS: LACTATED RINGER'S 1,000 ML IV ×3 (04:57→21:01)
[2019-03-30] MEDS: ACCU-CHEK XX ×4 (07:30→20:11)
[2019-03-30] MEDS: NPH, HUMAN INSULIN ISOPHANE 3ML VIAL SC ×2 (08:58→20:58)
[2019-03-30] MEDS: INSULIN ASPART [NOVOLOG] 3 ML PEN SC ×2 (08:59→17:49)
[2019-03-30] MEDS: PRENATAL VITAMIN PO (09:00)
[2019-03-30 14:57] LABS: COLLECTION PERIOD 24 hrs
[2019-03-30 15:30] LABS: COLLECTION PERIOD 24 hrs; VOLUME 2200 ml/24hrs; VOLUME 2200 mls
[2019-03-30 15:31] LABS: SCRET 0.44 mg/dl (0.44-1.00)
[2019-03-30 15:38] LABS: CREATININE CLEARANCE 228.2 mls/min (84.0-162.0); CREATININE,URINE RANDOM 65.72 mg/dl (20-320)
[2019-03-31] MEDS: LACTATED RINGER'S 1,000 ML IV ×3 (04:34→22:28)
[2019-03-31] MEDS: PRENATAL VITAMIN PO (08:55)
[2019-03-31] MEDS: INSULIN ASPART [NOVOLOG] 3 ML PEN SC ×2 (09:02→19:00)
[2019-03-31] MEDS: NPH, HUMAN INSULIN ISOPHANE 3ML VIAL SC ×2 (09:08→21:00)
[2019-03-31] MEDS: ACETAMINOPHEN 325 MG TAB PO (12:57)
[2019-03-31] MEDS: ACETAMINOPHEN 500 MG TAB PO (19:41)
[2019-03-31] MEDS: ACCU-CHEK XX (20:56)
[2019-03-31 22:50] LABS: ADD MAN DIFF? NO
[2019-03-31 22:52] LABS: BASOPHILS % 0.2 % (0.0-2.0); EOSINOPHILS # 0.1 10^3/ul (0.0-0.5); EOSINOPHILS % 1.7 % (0.0-7.0); HEMATOCRIT 33.7 % (37.0-47.0); HEMOGLOBIN 11.6 g/dl (12.0-16.0); LYMPHOCYTES # 1.6 10^3/ul (0.8-2.9); MEAN CORPUSCULAR HEMOGLOBIN 31.4 pg (29.0-33.0); MEAN CORPUSCULAR HGB CONC 34.4 g/dl (32.0-37.0); MEAN CORPUSCULAR VOLUME 91.1 fl (82.0-101.0); MEAN PLATELET VOLUME 11.3 fl (7.4-10.4); MONOCYTE # 0.5 10^3/ul (0.3-0.9); MONOCYTES % 6.3 % (0.0-11.0); NEUTROPHIL # 5.8 10^3/ul (1.6-7.5); NEUTROPHILS % 71.2 % (39.0-77.0); PLATELET COUNT 218 10^3/UL (140-415); RED CELL DISTRIBUTION WIDTH 13.2 % (11.5-14.5)
[2019-03-31 22:52] LABS: WHITE BLOOD COUNT 8.1 10^3/ul (4.8-10.8)
[2019-03-31] MEDS ORDERED: METHYLERGONOVINE 0.2 MG INJ IM (23:00)
[2019-03-31] MEDS ORDERED: MISOPROSTOL 200 MCG TAB PR (23:00)
[2019-03-31] MEDS ORDERED: CARBOPROST 250 MCG INJ IM (23:00)
[2019-03-31] MEDS ORDERED: OXYTOCIN 30 UNITS/LR 500 ML IV (23:00)
[2019-03-31 23:10] LABS: ALANINE AMINOTRANSFERASE 30 IU/L (13-69); ALBUMIN 3.3 g/dl (3.3-4.9); ALBUMIN/GLOBULIN RATIO 0.91; ALKALINE PHOSPHATASE 225 IU/L (42-121); ANION GAP 4 (5-13); ASPARTATE AMINO TRANSFERASE 38 IU/L (15-46); BILIRUBIN,INDIRECT 0.3 mg/dl (0-1.1); BILIRUBIN,TOTAL 0.3 mg/dl (0.2-1.3); BLOOD UREA NITROGEN 9 mg/dl (7-20); CALCIUM 9.4 mg/dl (8.4-10.2); CARBON DIOXIDE 27 mmol/L (21-31); CHLORIDE 105 mmol/L (97-110); CREATININE 0.48 mg/dl (0.44-1.00); Estimated GFR > 60 mL/min (>60); GLUCOSE 72 mg/dl (70-220); POTASSIUM 3.9 mmol/L (3.5-5.1); SODIUM 136 mmol/L (135-144); TOTAL PROTEIN 6.9 g/dl (6.1-8.1)
[2019-03-31 23:11] LABS: INR 0.84; PROTIME 11.6 Sec (11.9-14.9); PT RATIO 0.9
[2019-03-31 23:12] LABS: PARTIAL THROMBOPLASTIN TIME 25.7 Sec (23.0-35.0)
[2019-03-31 23:40] LABS: HEPATITIS B SURFACE ANTIGEN NEGATIVE (NEGATIVE)
[2019-03-31] MEDS ORDERED: morphine SULFATE/PF (10 MG/10 ML) INJ (23:50)
[2019-03-31] MEDS ORDERED: OXYTOCIN 10 UNIT INJ (23:50)
[2019-03-31] MEDS ORDERED: ONDANSETRON 4 MG INJ (23:50)
[2019-04-01] MEDS ORDERED: LABETALOL 200 MG TAB PO
[2019-04-01] MEDS ORDERED: OXYTOCIN 30 UNITS/LR 500 ML BAG IV
[2019-04-01] MEDS ORDERED: MISOPROSTOL 200 MCG TAB PR
[2019-04-01] MEDS ORDERED: NA PHOSPHATE/BIPHOS 133 ML ENEMA PR
[2019-04-01] MEDS ORDERED: LANOLIN HPA 1 PKT TOP
[2019-04-01] MEDS ORDERED: OXYCODONE/ACETAMINOPHEN (5/325) TAB PO
[2019-04-01] MEDS ORDERED: METOCLOPRAMIDE 10 MG INJ (00:29)
[2019-04-01] MEDS: IBUPROFEN 600 MG TAB PO ×4 (01:21→07:20)
[2019-04-01] MEDS: CEFAZOLIN 2 GM/50 ML (PMX) 50 ML IVPB (01:22)
[2019-04-01] MEDS: LACTATED RINGER'S 1,000 ML IV ×4 (01:22→23:08)
[2019-04-01] MEDS: OXYTOCIN 30 UNITS/LR 500 ML IV ×2 (01:23→04:30)
[2019-04-01] MEDS ORDERED: DIPHENHYDRAMINE 50 MG INJ IV (01:30)
[2019-04-01] MEDS ORDERED: NALOXONE (0.4 MG/ML) INJ IV (01:30)
[2019-04-01] MEDS ORDERED: ONDANSETRON 4 MG INJ IV (01:30)
[2019-04-01] MEDS: KETOROLAC 30 MG INJ IV ×4 (01:46→23:50)
[2019-04-01] MEDS: morphine 2 MG INJ IV (06:01)
[2019-04-01] MEDS: ACCU-CHEK XX ×4 (07:30→22:35)
[2019-04-01 08:59] LABS: ADD MAN DIFF? NO
[2019-04-01 09:08] LABS: WHITE BLOOD COUNT 11.1 10^3/ul (4.8-10.8)
[2019-04-01 09:09] LABS: BASOPHILS % 0.2 % (0.0-2.0); EOSINOPHILS # 0.1 10^3/ul (0.0-0.5); EOSINOPHILS % 0.8 % (0.0-7.0); HEMATOCRIT 30.4 % (37.0-47.0); HEMOGLOBIN 10.2 g/dl (12.0-16.0); LYMPHOCYTES # 1.7 10^3/ul (0.8-2.9); LYMPHOCYTES % 15.3 % (15.0-51.0); MEAN CORPUSCULAR HEMOGLOBIN 30.4 pg (29.0-33.0); MEAN CORPUSCULAR HGB CONC 33.6 g/dl (32.0-37.0); MEAN CORPUSCULAR VOLUME 90.5 fl (82.0-101.0); MONOCYTE # 0.6 10^3/ul (0.3-0.9); MONOCYTES % 5.7 % (0.0-11.0); NEUTROPHIL # 8.6 10^3/ul (1.6-7.5); NEUTROPHILS % 77.7 % (39.0-77.0); PLATELET COUNT 204 10^3/UL (140-415); RED BLOOD COUNT 3.36 10^6/ul (4.20-5.40); RED CELL DISTRIBUTION WIDTH 13.3 % (11.5-14.5)
[2019-04-01] MEDS: PRENATAL VITAMIN PO (09:26)
[2019-04-01] MEDS: SENNA/DOCUSATE NA (8.6MG/50MG) TAB PO ×2 (09:26→21:08)
[2019-04-01] MEDS: NIFEdipine (XL) 60 MG TAB PO (09:26)
[2019-04-01 22:02] LABS: RAPID PLASMA REAGIN NONREACTIVE (NR)
[2019-04-02] MEDS: OXYCODONE/ACETAMINOPHEN (5/325) TAB PO ×2 (03:55→15:44)
[2019-04-02] MEDS: IBUPROFEN 600 MG TAB PO ×4 (05:34→18:25)
[2019-04-02] MEDS: LACTATED RINGER'S 1,000 ML IV (06:30)
[2019-04-02] MEDS: PRENATAL VITAMIN PO (09:01)
[2019-04-02] MEDS: SENNA/DOCUSATE NA (8.6MG/50MG) TAB PO ×2 (09:01→21:00)
[2019-04-02] MEDS: NIFEdipine (XL) 60 MG TAB PO (09:01)
[2019-04-02] MEDS: ACCU-CHEK XX ×4 (09:01→20:05)
[2019-04-03] MEDS: IBUPROFEN 600 MG TAB PO ×4 (00:07→17:43)
[2019-04-03] MEDS: OXYCODONE/ACETAMINOPHEN (5/325) TAB PO ×4 (00:46→22:10)
[2019-04-03] MEDS: ACCU-CHEK XX ×4 (07:30→20:05)
[2019-04-03] MEDS: MEASLES,MUMPS,RUBELLA VACCINE INJ SC* (09:00)
[2019-04-03] MEDS: DIPHTH/TET/ACEL PERTUSS (ADULT) 0.5 ML VIAL IM* (09:00)
[2019-04-03] MEDS: PRENATAL VITAMIN PO (09:31)
[2019-04-03] MEDS: SENNA/DOCUSATE NA (8.6MG/50MG) TAB PO ×2 (09:31→22:10)
[2019-04-04] MEDS: IBUPROFEN 600 MG TAB PO ×3 (00:09→11:55)
[2019-04-04] MEDS: OXYCODONE/ACETAMINOPHEN (5/325) TAB PO ×4 (02:04→16:11)
[2019-04-04] MEDS: SENNA/DOCUSATE NA (8.6MG/50MG) TAB PO (08:49)
[2019-04-04] MEDS: PRENATAL VITAMIN PO (08:49)
[2019-04-04] MEDS: ACCU-CHEK XX ×3 (08:50→17:02)
== END 2019-04-04 18:17 | disposition home or self-care (01) | DRG 788 ==
LOC: OBT 11:02 → PP1 03-31 11:16 → L-D 04-01 00:58 → PP1 04-01 03:22 → L-D 11:16 → OBT 11:40 → L-D 11:40 → PP1 14:15
PROC: 10D00Z1 Extraction of Products of Conception, Low, Open Approach (ICD-10-PCS; principal; 2019-03-31 23:45)
DX: O14.14 Severe pre-eclampsia complicating childbirth (principal); O24.424 Gestational diabetes mellitus in childbirth, insulin controlled; O34.211 Maternal care for low transverse scar from previous cesarean delivery; Z3A.35 35 weeks gestation of pregnancy; Z37.0 Single live birth
CPT/HCPCS: 76815; 76818; 80053; 81001; 82575; 82962; 84156; 84560; 85025; 85610; 85730; 86592; 86850; 86900; 86901; 87340; 99464